=== PATIENT | female | born 1995 | race Caucasian/White ===

== ENCOUNTER 2019-07-29 16:50 | Emergency (ER) | payer OTHER ==
[2019-07-29 16:57] VITALS: BP 122/65; PULSE 72; TEMP 98; BMI 33.3
--- NOTE | 2019-07-29 18:28 | PDOC ---
History of Present Illness - General Chief Complaint: Pain Stated Complaint: INJURY AT WORK Time Seen by Provider: 07/29/19 17:53 - History of Present Illness Initial Comments: 07/29/19 18:22 23 y/o F w/PMH of depression presents for evaluation of L shoulder pain after taking a heavy bin off a shelf last night at work. Since that time her pain has almost resolved. Past History - Past Medical History Allergies/Adverse Reactions: Allergies Allergy/AdvReac Type Severity Reaction Status Date / Time No Known Allergies Allergy Verified 07/29/19 16:57 Home Medications: Ambulatory Orders Fluoxetine HCl 20 mg PO BID 07/29/19 COPD: No - Psycho Social/Smoking Cessation Hx Smoking History: Never smoked Review of Systems - Review of Systems Musculoskeletal: Yes: Joint Pain *Physical Exam - Vital Signs Last Vital Signs Temp Pulse Resp BP Pulse Ox 98 F 72 18 122/65 98 07/29/19 16:54 07/29/19 16:54 07/29/19 16:54 07/29/19 16:54 07/29/19 16:54 - Physical Exam Comments: 07/29/19 18:24 L shoulder skin color and temperature are normal. There is full non painful ROM , 5/5 strength in all planes. Mildly positive impingement maneuver. No gross sensory or motor deficits NVID. Medical Decision Making - Medical Decision Making 07/29/19 18:25 L shoulder strain, Tylenol and Motrin and f/u with ortho Discharge - Discharge Information Problems reviewed: Yes Clinical Impression/Diagnosis: Left shoulder strain Condition: Stable Disposition: HOME - Admission No - Follow up/Referral Referrals: Hany Mehta DO [Staff Physician] - - Patient Discharge Instructions Additional Instructions: Return to the emergency room should symptoms worsen. Please, without fail, follow up with orthopedic surgery in 1-2 days for further evaluation and treatment options. Tylenol and Motrin as directed for pain. - Post Discharge Activity Work/Back to School Note: Back to Work
== END 2019-07-29 18:29 | disposition home or self-care (01) ==
LOC: JERFT 16:50
DX: S46.812A Strain of other muscles, fascia and tendons at shoulder and upper arm level, left arm, initial encounter (principal); X50.0XXA Overexertion from strenuous movement or load, initial encounter; Y93.89 Activity, other specified; Y92.511 Restaurant or cafe as the place of occurrence of the external cause; Y99.0 Civilian activity done for income or pay
CPT/HCPCS: 99282-25